=== PATIENT | male | born 1950 ===

== ENCOUNTER → 2016-07-22 | Outpatient (REF) | payer OTHER ==
[2016-07-22 16:23] LABS: ALBUMIN 4.5 g/dL (3.4-5.0); TOTAL PROTEIN 7.8 g/dL (6.4-8.5)
[2016-07-28 11:33] LABS: HEPATITIS A ANTIBODY IGM Negative; HEPATITIS B CORE ABY IGM Negative; HEPATITIS B SURFACE ANTIGEN C Negative
== END ==
LOC: LAB 13:49
PROVIDERS: ATTEND Nurse Practitioner Family
DX: R74.8 Abnormal levels of other serum enzymes (principal)
CPT/HCPCS: 80074; 80076

== ENCOUNTER → 2016-08-12 | Outpatient (REF) | payer OTHER ==
[2016-08-12 14:53] LABS: BASOPHILS % (AUTO) 1 % (0-2); EOSINOPHILS # (AUTO) 0.2 10^3uL; EOSINOPHILS % (AUTO) 3 % (0-4); LYMPHOCYTES # (AUTO) 1.6 X10^3; MEAN CORPUSCULAR HEMOGLOBIN 29.8 PG (26.0-34.0); MEAN CORPUSCULAR VOLUME 90 FL (80-100); MEAN PLATELET VOLUME 11.4 FL (6.0-9.5); MONOCYTES # (AUTO) 0.4 X10^3; MONOCYTES % (AUTO) 7 % (3-11); NEUTROPHILS % (AUTO) 58 % (51-67); PLATELET COUNT 235 10^3uL (150-450); WHITE BLOOD COUNT 5.19 10^3uL (4.0-11.0)
[2016-08-12 14:56] LABS: ALBUMIN 4.3 g/dL (3.4-5.0); ANION GAP 17.3 MEQ/L (3-15); CALCULATED IONIZED CALCIUM 3.9 mg/dL (3.8-4.6); TOTAL PROTEIN 7.5 g/dL (6.4-8.5)
[2016-08-12 15:06] LABS: BILIRUBIN,URINE Negative (Negative); GLUCOSE, URINE (UA) Negative (Negative); LEUKOCYTE ESTERASE, URINE Negative (Negative); PH,URINE 5.5 (5.0 - 8.0); UROBILINOGEN,URINE 0.2 mg/dL (0.2-1.0)
[2016-08-12 15:13] LABS: CLARITY,URINE Slightly Cloudy; COLOR,URINE Dark Yellow
== END ==
LOC: LAB 13:59
PROVIDERS: ATTEND Nurse Practitioner Family
DX: Z01.818 Encounter for other preprocedural examination (principal)
CPT/HCPCS: 80053; 81003; 85025; 85610; 85730; 87081

== ENCOUNTER → 2016-08-12 | Outpatient (CLI) | payer OTHER, MEDICARE ==
--- NOTE | 2016-08-12 15:25 | Diagnostic Imaging Report ---
INDICATION: Preoperative evaluation prior to hip surgery. PA and lateral views of the chest are obtained. FINDINGS: Heart size and pulmonary vascularity are within normal limits. There is no pneumothorax or consolidation. No significant pleural fluid is identified. There is diffuse thoracic spondylosis. Note is also made of degenerative spurring about the right glenohumeral joint. IMPRESSION: Thoracic spondylosis without acute abnormality seen in the chest. Dictated by: Dictated on workstation # [id number]
== END ==
LOC: RAD 14:47
PROVIDERS: ATTEND Nurse Practitioner Family
DX: Z01.818 Encounter for other preprocedural examination (principal); M47.894 Other spondylosis, thoracic region
CPT/HCPCS: 71020

== ENCOUNTER → 2016-08-14 | Outpatient (CLI) | payer OTHER, MEDICARE ==
--- NOTE | 2016-08-14 07:51 | Diagnostic Imaging Report ---
PROCEDURE: US Abdomen, limited. TECHNIQUE: Multiple realtime grayscale images were obtained over the right upper quadrant in projections. INDICATION: Elevated liver enzymes. COMPARISON: None available. FINDINGS: Liver is normal in size. It demonstrates diffuse increased echogenicity with poor through sound transmission indicative of hepatic steatosis. There is a simple cyst located in the right hepatic lobe adjacent to the gallbladder fossa. This measures 1.7 x 1.5 cm. Main portal vein is patent with antegrade flow. The gallbladder is distended without gallstones, wall thickening, or pericholecystic fluid. The common bile duct measures up to 0.3 cm in diameter. No intrahepatic biliary dilation. The right kidney and pancreas are not evaluated. IMPRESSION: 1. Diffuse hepatic steatosis. Dictated by: Dictated on workstation # [id number]
== END ==
LOC: RAD 06:35
PROVIDERS: ATTEND Nurse Practitioner Family
DX: R74.8 Abnormal levels of other serum enzymes (principal); K76.0 Fatty (change of) liver, not elsewhere classified
CPT/HCPCS: 76705